=== PATIENT | female | born 1955 | race Caucasian/White ===

== ENCOUNTER 2020-12-02 06:18 | Day surgery (SDC) | payer BC ==
[2020-11-25 15:45] LABS: BASOPHILS # (AUTO) 0.1 X10'3 (0-0.2); BASOPHILS % (AUTO) 0.7 % (0-1); EOSINOPHILS # (AUTO) 0.2 X10'3 (0-0.9); EOSINOPHILS % (AUTO) 2.8 % (0-6); LYMPHOCYTES # (AUTO) 2.3 X10'3 (1.1-4.8); LYMPHOCYTES % (AUTO) 32.4 % (21-51); MEAN CORPUSCULAR HEMOGLOBIN 32.4 PG (27.0-31.0); MEAN CORPUSCULAR HGB CONC 32.9 g/dL (33.0-36.5); MEAN CORPUSCULAR VOLUME 98.6 FL (78-98); MEAN PLATELET VOLUME 7.9 FL (7.4-10.4); MONOCYTES # (AUTO) 0.6 X10'3 (0-0.9); MONOCYTES % (AUTO) 7.8 % (2-12); NEUTROPHILS % (AUTO) 56.3 % (42-75); PRE OP HEMOGLOBIN 14.5 g/dL (12.0-16.0); PRE OP PLATELET COUNT 207 X10'3 (140-440); RED BLOOD COUNT 4.46 X10'6 (4.20-5.60); RED CELL DISTRIBUTION WIDTH 13.4 % (11.5-14.5)
[2020-11-25 15:56] LABS: ALBUMIN 3.8 G/DL (3.4-5.0); ALBUMIN/GLOBULIN RATIO 1.2 (1.1-1.5); ALKALINE PHOSPHATASE 72 IU/L (46-116); BLOOD UREA NITROGEN 15 MG/DL (7-18); BUN/CREATININE RATIO 31.9 (6.6-38.0); CHLORIDE 105 MMOL/L (99-107); CREATININE 0.47 MG/DL (0.40-0.90); PRE OP ALT 32 U/L (30-65); PRE OP ANION GAP 7 (8-16); PRE OP AST 18 U/L (10-37); PRE OP BILIRUB, TOTAL 0.3 MG/DL (0.0-1.0); PRE OP GLUCOSE 90 MG/DL (70-104); PRE OP POTASSIUM 4.2 MMOL/L (3.4-5.1); PRE OP SODIUM 143 MMOL/L (135-145); TOTAL CARBON DIOXIDE 30.9 MMOL/L (24-32); TOTAL PROTEIN 7.1 G/DL (6.4-8.2); eGFR > 90 ML/MIN
[2020-11-25 16:04] LABS: PRE OP PROTIME 10.4 SECONDS (9.0-12.0)
[2020-12-02] VITALS (13 sets, daily range): BP systolic 141–196; BP diastolic 75–106
[~2020-12-02] VITALS: Ht 172.7 cm; Wt 53.0 kg
[~2020-12-02 06:18] MED LIST: ERGO500041 PO; ESCI5TAB PO; IBAN150T16 PO; LISI-643 PO; ROSU5TAB12 PO; famotidine 20mg tablet PO ONE; ringers solution, lacted 1,000 ML IV SCH
[2020-12-02] MEDS ORDERED: LIDOcaine 1% W/epiNEPHrine 1:100,000 20ml vial ONE (06:44)
[2020-12-02] MEDS ORDERED: cocaine 4% topical solution 4ml bottle ONE (06:44)
[2020-12-02] MEDS ORDERED: mupirocin 2% ointment 22GM ONE (06:45)
[2020-12-02] MEDS ORDERED: oxymetazoline 15 ML nasal spray NS ONE (06:45)
[2020-12-02] MEDS ORDERED: cefTAZidime 1gm inj ONE (06:45)
[2020-12-02] MEDS ORDERED: LIDOcaine 1% (10mg/ml) 2ml vial ONE (07:01)
[2020-12-02] MEDS: oxymetazoline 15 ML nasal spray NS PRN ×2 (07:10→09:39)
[2020-12-02] MEDS ORDERED: sevoflurane 250ml liquid IH ONE (08:02)
[2020-12-02] MEDS ORDERED: fentaNYL/PF 50MCG/1 ML 2ML syringe ONE (08:05)
[2020-12-02] MEDS ORDERED: midazolam 1 mg/ML 2ml injection ONE (08:05)
[2020-12-02] MEDS ORDERED: meperidine/PF 25mg/ml syringe IV PRN ×2 (08:50)
[2020-12-02] MEDS ORDERED: labetalol 20mg/4ml (5mg/ml) syringe IV PRN (08:50)
[2020-12-02] MEDS ORDERED: ondansetron/PF 4mg/2ml inj IV PRN (08:50)
[2020-12-02] MEDS ORDERED: ringers solution, lacted 1,000 ML IV SCH (08:50)
[2020-12-02] MEDS ORDERED: morphine 2 MG/ML inj. syringe IV PRN (08:50)
[2020-12-02] MEDS ORDERED: proCHLORperazine 10 MG/2 ml inj IV PRN (08:50)
[2020-12-02] MEDS ORDERED: methylPREDNISolone acetate 80mg/ml inj**IM only ONE (08:58)
[2020-12-02] MEDS ORDERED: dexamethasone sod phosphate 4mg/ml inj. ONE (09:45)
[2020-12-02] MEDS ORDERED: propofol inj 20 ML IV ONE (09:45)
[2020-12-02] MEDS ORDERED: labetalol 20mg/4ml (5mg/ml) syringe IV ONE (09:46)
[2020-12-02] MEDS ORDERED: ondansetron/PF 4mg/2ml inj ONE (09:46)
--- NOTE | 2020-12-02 10:07 | NUR ---
Received from OR via [facility], accompanied by Anesthesiologist DR BARR and report given by Anesthesiologist. PT W/LEAT COTTONNOIDS IN NARES, SMALL AMT OF S/S DRAINAGE. HYDRALIZINE GIVEN AT BEDSIDE FOR BP 196/[address] BARR'S ORDER. Addendum: 12/02/20 at 1041 by Elida Florez RN Amended: Links added.
[2020-12-02] MEDS: meperidine/PF 25mg/ml syringe IV PRN ×2 (10:18→10:30)
[2020-12-02] MEDS ORDERED: hydrALAZINE 20mg/ml inj. IV ONE (10:23)
[2020-12-02] MEDS: hydrALAZINE 20mg/ml inj. IV PRN ×2 (10:29→10:42)
[2020-12-02] MEDS: morphine 4 MG/ML inj SYRINge IV PRN ×2 (10:51→11:15)
[2020-12-02] MEDS ORDERED: enalaprilat dihydrate 2.5mg/2ml vial IV PRN (11:05)
[2020-12-02] MEDS ORDERED: salt irrigation nasal spray 45 ML SPRAY NS PRN (11:25)
--- NOTE | 2020-12-02 12:17 | NUR ---
BP UNDER CONTROL, PAIN MUCH IMPROVED, S/S DRAINAGE FROM BILAT NARES DECREASED, BILAT COTTONNOIDS PULLED PER ORDERS, NO BLEEDING NOTED. PT UP AND ABLE TO AMBULATE W/ STAND BY ASSIST TO BATHROOM FOR VOID. D/C INSTRUCTIONS GIVEN AND GONE OVER W/PT WHO VERBALIZED UNDERSTANDING. PT D/CD TO PRIVATE VEHICLE VIA W/C TO HOME WITH OUT INCIDENT. Addendum: 12/02/20 at 1238 by Elida Florez RN Amended: Links added.
== END 2020-12-02 12:17 | disposition home or self-care (01) ==
LOC: PAS 06:18
PROVIDERS: ATTEND Otolaryngology
DX: J32.8 Other chronic sinusitis (principal); J34.3 Hypertrophy of nasal turbinates; J33.8 Other polyp of sinus; F17.210 Nicotine dependence, cigarettes, uncomplicated; I10 Essential (primary) hypertension; F32.9 Major depressive disorder, single episode, unspecified; M81.0 Age-related osteoporosis without current pathological fracture; M19.90 Unspecified osteoarthritis, unspecified site; Z20.822 Contact with and (suspected) exposure to COVID-19; Z79.899 Other long term (current) drug therapy; Z79.01 Long term (current) use of anticoagulants; Z98.890 Other specified postprocedural states
CPT/HCPCS: 30140; 31240; 31253; 31259; 31267; 36415; 61782; 80053; 85025; 85576; 85610; 85730; 87426; 93005; A6402; C9250; J0360; J0713; J1040; J1100; J2001; J2175; J2250; J2270; J2405; J2704; J3010; J7040; J7120; U0003; A4618; A6449; A7000; J3490

== ENCOUNTER 2022-08-03 06:05 | Day surgery (SDC) | payer MEDICARE, BC ==
[~2022-08-03] VITALS: Ht 170.2 cm; Wt 52.2 kg
[2022-08-03] VITALS (10 sets, daily range): BP systolic 141–173; BP diastolic 66–107
[~2022-08-03 06:05] MED LIST changes: +CEFD300C17 PO; -ERGO500041 PO; -ESCI5TAB PO; -IBAN150T16 PO; -ROSU5TAB12 PO; +tranexamic acid inj. 1,000 MG in normal saline IV soln 100ML IV ONE
--- NOTE | 2022-08-03 06:10 | NUR ---
pt prepped for surgery, covid test performed, results placed on chart. iv started in right wrist. pt's belongings list completed, offered to lock purse credit cards and hennessy up. pt refused. son at bedside, she did not want him to take it either. ring removed and placed in cup in belongings bag, one ring would not come off and was taped in place. Dr. Barajas at bedside, pt seen by anesthesia, consent signed.
[2022-08-03] MEDS ORDERED: oxymetazoline 15 ML nasal spray NS PRN (06:30)
[2022-08-03] MEDS ORDERED: cocaine 4% topical solution 4ml bottle ONE (06:44)
[2022-08-03] MEDS ORDERED: LIDOCAINE 1%/EPI 1:100,000 inj. 10 ML multi-dose vial ONE ×3 (06:45→07:49)
[2022-08-03] MEDS ORDERED: mupirocin 2% ointment 22GM ONE ×2 (06:45→07:12)
[2022-08-03] MEDS ORDERED: methylPREDNISolone acetate 80mg/ml inj**IM only ONE (06:45)
[2022-08-03] MEDS ORDERED: proCHLORperazine 10 MG/2 ml inj IV PRN (08:00)
[2022-08-03] MEDS ORDERED: fentaNYL/PF 50MCG/1 ML 2ML syringe IV PRN (08:00)
[2022-08-03] MEDS ORDERED: labetalol 20mg/4ml (5mg/ml) syringe IV PRN (08:00)
[2022-08-03] MEDS ORDERED: hydrALAZINE 20mg/ml inj. IV PRN (08:00)
[2022-08-03] MEDS ORDERED: acetaminophen 1,000mg/100ml IV 100 ML IV PRN (08:00)
[2022-08-03] MEDS ORDERED: ondansetron/PF 4mg/2ml inj IV PRN (08:00)
[2022-08-03] MEDS ORDERED: meperidine/PF 25mg/ml syringe IV PRN ×3 (08:00)
[2022-08-03] MEDS ORDERED: ringers solution, lacted 1,000 ML IV SCH (08:00)
[2022-08-03] MEDS ORDERED: sevoflurane 250ml liquid IH ONE (08:03)
[2022-08-03] MEDS ORDERED: fentaNYL/PF 50MCG/1 ML 2ML syringe ONE (08:08)
[2022-08-03] MEDS ORDERED: propofol inj 20 ML IV ONE (08:33)
[2022-08-03] MEDS ORDERED: 0.9 % SODIUM CHLORIDE 10 ML VIAL ONE (08:33)
[2022-08-03] MEDS ORDERED: LIDOcaine 2% (20mg/ml) 5ml vial ONE (08:33)
[2022-08-03] MEDS ORDERED: ceFAZolin 1000mg inj ONE (08:33)
[2022-08-03] MEDS ORDERED: ondansetron/PF 4mg/2ml inj ONE (08:35)
[2022-08-03] MEDS ORDERED: dexamethasone sod phosphate 4mg/ml inj. ONE (08:35)
--- NOTE | 2022-08-03 10:20 | NUR ---
PT ARRIVED TO RR VIA GURNEY, WAKING UP, C/O PAIN IN FACE-BP ELEVATED WILL TREAT PAIN FIRST, OTHER VSS STABLE, NO DRAINAGE NOTED FROM NARES-NO PACKING, PIV 20G TO RIGHT HAND, NEURO CHECK INTACT
[2022-08-03] MEDS: fentaNYL/PF 50MCG/1 ML 2ML syringe IV PRN ×2 (10:23→10:51)
[2022-08-03] MEDS ORDERED: salt irrigation nasal spray 45 ML SPRAY NS PRN (11:15)
--- NOTE | 2022-08-03 11:50 | NUR ---
PT UP AND GETTING DRESSED, VSS, PAIN MINIMAL, MUSTACHE DRSG IN PLACE WITH MINIMAL DRAINAGE, EDUCATED REGARDING HOME CARE AND GIVEN NEEDED SUPPLIES-ALL QUESTIONS ANSWERED, PIV D/CD, PT TAKEN WITH ALL BELONGINGS VIA W/C TO VEHICLE FOR TRANSPORT HOME.
== END 2022-08-03 11:50 | disposition home or self-care (01) ==
LOC: PAS 06:05
PROVIDERS: ATTEND Otolaryngology
DX: J32.9 Chronic sinusitis, unspecified (principal); J33.8 Other polyp of sinus; J34.1 Cyst and mucocele of nose and nasal sinus; F17.210 Nicotine dependence, cigarettes, uncomplicated; I10 Essential (primary) hypertension; Z79.2 Long term (current) use of antibiotics; Z20.828 Contact with and (suspected) exposure to other viral communicable diseases; Z20.822 Contact with and (suspected) exposure to COVID-19; Z79.899 Other long term (current) drug therapy; Z98.890 Other specified postprocedural states
CPT/HCPCS: 31253; 31256; 31287; 36415; 61782; 87635; 93005; A6402; C1726; C2625; C9250; C9803; J0690; J1040; J1100; J2405; J2704; J3010; J3490; J7030; J7040; J7120; U0003; U0005; Z7506; Z7508; Z7512; 88304; 88311; A4618; A6449; A7000